=== PATIENT | male | born 1990 | race Two or more races ===

== ENCOUNTER 2017-02-10 19:45 | Emergency (ER) | payer OTHER ==
[~2017-02-10] VITALS: Ht 193 cm; Wt 113.0 kg
[~2017-02-10 19:45] MED LIST: CYMB60CA3 PO; DULO30CA PO; OMEP20CA3 PO
[2017-02-10] MEDS ORDERED: CLON0.5T PO (20:09)
[2017-02-10] MEDS ORDERED: xanax PO (20:09)
[2017-02-10] MEDS ORDERED: valium PO (20:09)
[2017-02-10] MEDS ORDERED: DULO30CA PO (20:38)
[2017-02-10 21:27] VITALS: BP 119/70
== END 2017-02-10 21:28 | disposition home or self-care (01) ==
LOC: M ED 19:45
DX: Z76.0 Encounter for issue of repeat prescription (principal); F41.9 Anxiety disorder, unspecified; F32.9 Major depressive disorder, single episode, unspecified; Z72.0 Tobacco use

== ENCOUNTER → 2017-03-04 | Outpatient (REF) | payer OTHER ==
[~2017-03-04] MED LIST changes: +CLON0.5T PO; +valium PO; +xanax PO
== END ==
LOC: M SFHCPLAZ 15:41
PROVIDERS: ATTEND Student in an Organized Health Care Education/Training Program
DX: J06.9 Acute upper respiratory infection, unspecified (principal)

== ENCOUNTER 2020-12-09 17:06 | Inpatient (IN) | payer MEDICARE, OTHER ==
[~2020-12-09] VITALS: Ht 193 cm; Wt 101.3 kg
[~2020-12-09 17:06] MED LIST changes: -CLON0.5T PO; +CLON0.5T2 PO; -DULO30CA PO; +DULO30CA9 PO; +OMEP1CAP73 PO; -OMEP20CA3 PO
--- NOTE | 2020-12-09 21:46 | REPVR ---
PROCEDURE INFORMATION: Exam: CT Head Without Contrast Exam date and time: 12/09/2020 9:39 PM Age: 30 years old Clinical indication: Weakness, extremity; Left; Additional info: CVA - nursing interventions must not delay CT TECHNIQUE: Imaging protocol: Computed tomography of the head without contrast. Radiation optimization: All CT scans at this facility use at least one of these dose optimization techniques: automated exposure control; mA and/or kV adjustment per patient size (includes targeted exams where dose is matched to clinical indication); or iterative reconstruction. Other technique: STROKE PROTOCOL was implemented. COMPARISON: No relevant prior studies available. FINDINGS: Brain: There is volume loss, advanced for stated age. There are small white matter lucencies. There is a lucency in the right cerebellar white matter. No acute infarct is identified. There is no hemorrhage or extra-axial collection. There Cerebral ventricles: No ventriculomegaly. Paranasal sinuses: Visualized sinuses are unremarkable. No fluid levels. Mastoid air cells: Visualized mastoid air cells are well aerated. Bones/joints: Unremarkable. No acute fracture. Soft tissues: Unremarkable. IMPRESSION: 1. There is volume loss. There are white matter lucencies which could represent chronic microvascular disease with small old infarcts. Given age, a demyelinating disease should also be considered. 2. No acute infarct or hemorrhage ASSESSMENT: ASPECTS ([place] Stroke Program Early CT Score) is 10. Electronically signed by: Chavez Castaneda On 12/09/2020 21:46:11 PM
[2020-12-09] MEDS ORDERED: MOM 30ML SUSPENSION UDC PO PRN (22:10)
[2020-12-09] MEDS ORDERED: MAALOX 30 ML SUSP *UDC PO PRN (22:10)
--- NOTE | 2020-12-09 22:18 | HPEPDOC ---
[facility] Medical History & Physical Date of Admission Dec 09, 2020 Date of Service: Dec 09, 2020 Attending Physician: KAILASH CHAMORRO MD History and Physical CHIEF COMPLAINT: [30 y/o male c/o left sided weakness x3-4 weeks] HISTORY OF PRESENT ILLNESS: [This is a 30 y/o male with a pmh of multiple sclerosis, gerd, glaucoma, cataracts and depression who reports to our ED today 12/09 with a cc of left sided weakness for several weeks. Patient states that he was seen at a hospital in [place] for these symptoms on 11/27 and was put on a 5 day course of steroids for an MS exacerbation. Patient states that the steroids helped his symptoms some, but they simply came back after the steroids were out. Patient states that his primary complaint is of weakness on the left side of the body. Patient also complains of some double vision in the right eye, back pain "over the whole spine," mild paresthesias of his left fingers, and some constipation, with his last bowel movement being two days ago. Patient states that he feels as though these symptoms are an ms exacerbation, but are not as severe as previous exacerbations, in which he was apparently paralyzed with. Patient at this time denies syncope, headaches, eye pain, vision loss, chest pain, sob, n/v/d, abd pain, lower extremity pain or paresthesias, fevers, chills. Patient was previously on oral daily maintenance therapy for his ms, however had to stop this d/t losing insurance. Patient states he has been off medication for about a year. Patient has recently moved to [place] and has not establish ed with a neurologist here yet.] PAST MEDICAL HISTORY: 1. [See HPI PAST SURGICAL HISTORY: 1. [Appendectomy]. 2. [Cholecystectomy]. SOCIAL HISTORY: Tobacco use:[<1 ppd for 17 years.] ETOH: ["Once in a blue hernandez"] Illicit drug use: [Denies] FAMILY HISTORY: Father: [Unspec. aortic aneurysm] ALLERGIES: Please see below. REVIEW OF SYSTEMS: CONSTITUTIONAL: [See HPI]. HEENT: [Denies uri sx]. CARDIOVASCULAR: [See HPI]. RESPIRATORY: [See HPI]. GASTROINTESTINAL: [See HPI]. GENITOURINARY: [Denies dysuria]. SKIN: [Denies rash]. MUSCULOSKELETAL: [See HPI]. NEUROLOGICAL: [See HPI]. ENDOCRINE: [Denies hx of DM]. HEMATOLOGIC/LYMPHATIC: [Denies easy bruising]. HOME MEDICATIONS: Please see below. PHYSICAL EXAMINATION: VITAL SIGNS: Please see below. GENERAL APPEARANCE: [This is an anxious appearing 30 y/o male. He does not appear to be in any respiratory distress.]. HEENT: [No mass or lesion. No facial droop or ptosis. EOMI. No scleral icterus. Nares patent. Oral mucosa moist.]. CARDIOVASCULAR: [Regular rate, rhythm. No murmurs, rubs,g allops]. LUNGS: [Good air flow b/l. No wheezing, rales, rhonchi.]. ABDOMEN: [Soft, nontender]. MUSCULOSKELETAL: [No joint deformity]. EXTREMITIES: [No peripheral edema. No overlying skin changes. Pulses intact.]. NEUROLOGICAL: [LUE and LLE strength markedly decreased. RUE and RLE strength normal. Patient able to move all fours. Gait not assessed. Speech clear. A +Ox3.]. PSYCHIATRIC: [Mood and affect appear appropriate.]. LABORATORY DATA: See below. IMAGING: [CXR: FINDINGS: Lungs: Unremarkable. No consolidation. Pleural spaces: Unremarkable. No pleural effusion. No pneumothorax. Heart/Mediastinum: Unremarkable. No cardiomegaly. Bones/joints: Unremarkable. IMPRESSION: No acute findings. Head CT: FINDINGS: Brain: There is volume loss, advanced for stated age. There are small white matter lucencies. There is a lucency in the right cerebellar white matter. No acute infarct is identified. There is no hemorrhage or extra-axial collection. There Cerebral ventricles: No ventriculomegaly. Paranasal sinuses: Visualized sinuses are unremarkable. No fluid levels. Mastoid air cells: Visualized mastoid air cells are well aerated. Bones/joints: Unremarkable. No acute fracture. Soft tissues: Unremarkable. IMPRESSION: 1. There is volume loss. There are white matter lucencies which could represent chronic microvascular disease with small old infarcts. Given age, a demyelinating disease should also be considered. 2. No acute infarct or hemorrhage ASSESSMENT: ASPECTS ([place] Stroke Program Early CT Score) is 10. ] MICROBIOLOGY: Please see below. ASSESSMENT: [This is a 30 y/o male with a pmh of multiple sclerosis, gerd, glaucoma, cataracts and depression who reports to our ED today 12/09 with a cc of left sided weakness for several weeks. Patient received head CT in the ED which was indicative of chronic changes related to MS. Patient was previously on maintenance therapy for his ms but stopped taking his medications when he lost health insurance. Patient feels as though his current symptoms are related to an MS flair. Patients symptoms were briefly relieved from 11/27-12/02 d/t a steroid course given to him while he was in [place].]. . PLAN: 1. [Acute Multiple sclerosis exacerbation - Brain MRI ordered - Dr. Vazquez, neurology, has been consulted. Assistance is appreciated. - 1g solumedrol - Pt will likely benefit from pt/ot once symptoms improve - Admit to med surg for workup and tx DVT prophylaxis - Teds and SCDs]. Vital Signs Vital Signs Date Time Temp Pulse Resp B/P (MAP) Pulse Ox O2 Delivery O2 Flow Rate FiO2 12/09/20 21:03 12/09/20 17:07 99.0 95 20 98 Room Air Allergies Coded Allergies: raspberry (Verified Allergy, Unknown, 12/09/20) A-FIB/CHADSVASC A-FIB History Current/History of A-Fib/PAF?: No JULIA CARMONA Dec 09, 2020 22:18
--- NOTE | 2020-12-09 22:20 | REPVR ---
PROCEDURE INFORMATION: Exam: XR Chest Exam date and time: 12/09/2020 9:50 PM Age: 30 years old Clinical indication: Other: CVA TECHNIQUE: Imaging protocol: XR of the chest. Views: 1 view. COMPARISON: No relevant prior studies available. FINDINGS: Lungs: Unremarkable. No consolidation. Pleural spaces: Unremarkable. No pleural effusion. No pneumothorax. Heart/Mediastinum: Unremarkable. No cardiomegaly. Bones/joints: Unremarkable. IMPRESSION: No acute findings. Electronically signed by: Chavez Castaneda On 12/09/2020 22:20:03 PM
[2020-12-09] MEDS ORDERED: PROHANCE 279.3MG/ML 15ML VIAL As Ordered ONE (22:59)
[2020-12-09] MEDS ORDERED: PROHANCE 279.3MG/ML 5ML VIAL As Ordered ONE (22:59)
[2020-12-10 00:04] LABS: PARTIAL THROMBOPLASTIN TIME 28.2 SECONDS (24.2-38.5)
--- NOTE | 2020-12-10 00:09 | REPVR ---
PROCEDURE INFORMATION: Exam: MR Head Without and With Contrast Exam date and time: 12/09/2020 11:21 PM Age: 30 years old Clinical indication: Condition or disease; Multiple sclerosis; Additional info: Left sided weakness, HX of ms TECHNIQUE: Imaging protocol: MR of the head without and with intravenous contrast. Contrast material: PROHANCE; Contrast volume: 20 ml; Contrast route: INTRAVENOUS (IV); COMPARISON: CT Head without contrast 12/09/2020 9:28 PM FINDINGS: There is age accelerated volume loss. Major vascular flow voids at the skull base are preserved. No extra-axial fluid collection. There is extensive pathologic white-matter signal involving the corpus callosum, pericallosal/periventricular white matter, subcortical white matter, brainstem, bilateral cerebellar hemispheres, bilateral middle cerebellar peduncles and the upper cervical cord. There are enhancing lesions involving the left cerebellum, high paramedian right frontal and parietal lobes and high paramedian left frontal lobe. Multifocal T2 shine through. No true diffusion restriction to indicate acute ischemic infarct. IMPRESSION: 1. Extensive findings of demyelination with age accelerated volume loss. 2. Foci of active demyelination involving the left cerebellum, high right frontal and parietal lobes and high left frontal lobe. Electronically signed by: Loki Wild On 12/10/2020 00:08:29 AM
[2020-12-10 00:23] LABS: BASO # 0.1 10^3/uL (0.0-0.2); BASO % 0.6 % (0.0-1.0); EOS # 0.1 10^3/uL (0.0-0.5); EOS % 1.4 % (0.0-3.0); HEMATOCRIT 47.9 % (42.0-52.0); HEMOGLOBIN 16.1 g/dl (13.5-17.5); LYMPH # 1.8 10^3/uL (1.5-5.0); LYMPH % 21.7 % (24.0-44.0); MEAN CORPUSCULAR HEMOGLOBIN 29.4 pg (27.0-33.0); MEAN CORPUSCULAR HGB CONC 33.6 g/dl (32.0-36.5); MEAN CORPUSCULAR VOLUME 87.6 fl (80.0-96.0); MONO # 0.4 10^3/uL (0.0-0.8); MONO % 5.1 % (2.0-8.0); NEUTROPHILS % 70.5 % (36.0-66.0); PLATELET COUNT, AUTOMATED 279 10^3/uL (150-450); RED BLOOD COUNT 5.47 10^6/uL (4.30-6.10); WHITE BLOOD COUNT 8.5 10^3/uL (4.0-10.0)
[2020-12-10] MEDS ORDERED: ALEV220T22 PO (00:26)
[2020-12-10 00:32] LABS: CK-MB VALUE MASS < 1.0 NG/ML (<3.6); CPK CREATINE PHOSPHOKINASE 53 U/L (39-308); MB/CK RELATIVE INDEX 1.89 (< OR =4); TROPONIN I < 0.02 NG/ML (< 0.10)
[2020-12-10 00:51] LABS: INR 0.87
[2020-12-10 00:57] LABS: BLOOD UREA NITROGEN 12 MG/DL (7-18); CALCIUM LEVEL 9.2 MG/DL (8.5-10.1); CARBON DIOXIDE LEVEL 30 MEQ/L (21-32); CHLORIDE LEVEL 106 MEQ/L (98-107); CREATININE FOR GFR 1.04 MG/DL (0.70-1.30); GLOMERULAR FILTRATION RATE > 60.0 (>60); GLUCOSE, FASTING 92 MG/DL (70-100); POTASSIUM SERUM 4.3 MEQ/L (3.5-5.1); SODIUM LEVEL 139 MEQ/L (136-145)
[2020-12-10 01:12] LABS: RSV AMPLIFICATION NEGATIVE (NEGATIVE)
[2020-12-10] MEDS ORDERED: NICOTINE 14 MG/24 HR TRANSDERMAL TD PRN (02:00)
[2020-12-10 03:02] VITALS: BP 138/77
[2020-12-10] MEDS ORDERED: SLF 3 ML SYR IV PRN (03:15)
[2020-12-10] MEDS ORDERED: methylPREDNISolone 1,000 MG, VIAL MATE ADAPTER 1 EACH in NS 250 ML IV ONE (05:00)
[2020-12-10 06:18] LABS: HEMATOCRIT 47.8 % (42.0-52.0); HEMOGLOBIN 15.9 g/dl (13.5-17.5); MEAN CORPUSCULAR HEMOGLOBIN 29.5 pg (27.0-33.0); MEAN CORPUSCULAR HGB CONC 33.3 g/dl (32.0-36.5); MEAN CORPUSCULAR VOLUME 88.7 fl (80.0-96.0); PLATELET COUNT, AUTOMATED 245 10^3/uL (150-450); RED BLOOD COUNT 5.39 10^6/uL (4.30-6.10); WHITE BLOOD COUNT 8.2 10^3/uL (4.0-10.0)
[2020-12-10] MEDS: SLF 3 ML SYR IV SCH ×3 (06:36→21:38)
[2020-12-10 06:40] LABS: BLOOD UREA NITROGEN 12 MG/DL (7-18); CALCIUM LEVEL 9.4 MG/DL (8.5-10.1); CARBON DIOXIDE LEVEL 31 MEQ/L (21-32); CHLORIDE LEVEL 107 MEQ/L (98-107); CREATININE FOR GFR 0.99 MG/DL (0.70-1.30); GLOMERULAR FILTRATION RATE > 60.0 (>60); GLUCOSE, FASTING 90 MG/DL (70-100); POTASSIUM SERUM 4.4 MEQ/L (3.5-5.1); SODIUM LEVEL 141 MEQ/L (136-145)
[2020-12-10 08:00] VITALS: BP 127/82
[2020-12-10] MEDS: DOCUSATE SODIUM 100MG CAPSULE PO SCH ×2 (08:39→20:28)
--- NOTE | 2020-12-10 12:45 | IPNPDOC ---
Text Note Date of Service The patient was seen on 12/10/20. NOTE Subjective: Patient stated that he feels better today, left-sided weakness im proved Objective: GENERAL APPEARANCE: NAD HEENT: no scleral icterus, no JVD, EOMI CARDIOVASCULAR: S1S2 LUNGS: CTA ABDOMEN: soft & not tender w palpitation MUSCULOSKELETAL: no cyanosis, no swelling INTEGUMENT: no generalized pallor NEUROLOGICAL: Left upper extremity stents 3 out of 5, left lower extremity strength 3 out of 5 follows commands, speech not dysarthric Assessment and plan Patient is 30 years old male with past history of multiple sclerosis, GERD, glaucoma, cataracts and depression presented to ED with left sided weakness for several weeks. Patient was not able to take his medications for multiple sclerosis due to lack of insurance Multiple sclerosis exacerbation I talked to Dr. Vazquez, he recommended 5 days course of 1g Solu-Medrol IV and then slow taper steroid for next 3-4 weeks supply service worker on board to help with Medicaid Appreciate/agree with neurologist consult Left-sided weakness Secondary to exacerbation of multiple sclerosis PT/OT Tobacco dependence Nicotine patch VS,Fishbone, I+O VS, Fishbone, I+O Laboratory Tests 12/09/20 23:46 12/10/20 05:55 Vital Signs Date Time Temp Pulse Resp B/P (MAP) Pulse Ox O2 Delivery O2 Flow Rate FiO2 12/10/20 08:00 97.6 79 16 127/82 (97) 99 Room Air I&O- Last 24 Hours up to 6 AM 12/10/20 06:00 Intake Total 0 ml Output Total 300 ml Balance -300 ml ANGELIA RAZO DO Dec 10, 2020 12:45
[2020-12-10 19:06] LABS: ALT/SGPT 41 U/L (12-78)
[2020-12-10 19:17] LABS: TOTAL 25(OH) VITAMIN D 12.8 NG/ML (30.0-100.0)
[2020-12-10 19:18] LABS: HEPATITIS B SURFACE ANTIBODY POSITIVE (POSITIVE); VITAMIN B12 LEVEL 445 PG/ML (247-911)
[2020-12-10 19:57] LABS: HEPATITIS C VIRUS ABY INDEX < 0.0 INDEX (<0.8)
[2020-12-10 22:00] VITALS: BP 145/88
[2020-12-11 06:00] VITALS: BP 146/83
[2020-12-11] MEDS: SLF 3 ML SYR IV SCH ×3 (06:07→19:36)
--- NOTE | 2020-12-11 07:10 | ECGEPIP ---
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
--- NOTE | 2020-12-11 07:38 | CR ---
CONSULTATION DATE: 12/10/2020 REFERRING PHYSICIAN: KAILASH CHAMORRO MD REASON FOR CONSULTATION: Multiple sclerosis. HISTORY OF PRESENT ILLNESS: Gaurang Zapata is a 30-year-old man with a history of multiple sclerosis diagnosed in [place] in 2018. Patient and his state he was on Plegridy in the past that caused side-effects. He was later on Gilenya which he stopped taking in the summer of 2019 when he ran out of insurance and could not afford the medication. He did not qualify for drug assistance program. He had four or five exacerbations of multiple sclerosis since 2018. He was most recently hospitalized in the beginning of November 2020 in [place] and received Solu-Medrol. He lost his job and he decided to move back to [facility] where his has relatives. They drove back from [place] yesterday and came to the Emergency Department as it became more difficult for him to walk and move his left arm and leg. He was admitted for steroid treatment and MRI scan of his brain. He states that he had a spinal tap in [place] which was unremarkable. His CBC, metabolic profile, COVID-19, flu, urinalysis, RSV were unremarkable. He feels off balance. He has on and off headaches. He denies seizures, dysphagia, dysarthria, diplopia, urinary incontinence, falls or loss of consciousness. DIAGNOSTIC STUDIES: MRI scan of brain showed mild atrophy and active plaques in left cerebellum, right parietal and bilateral frontal head regions with contrast enhancement. He also has multiple and extensive white matter lesions bilaterally in deep cerebral white matter in periventricular region. PAST MEDICAL HISTORY: 1. Multiple sclerosis. 2. Acid reflux. 3. Glaucoma. 4. Cataracts. 5. Depression. SOCIAL HISTORY: He smoked less than one pack per day for 17 years. He drinks alcohol rarely. He denies illicit drugs. FAMILY HISTORY: Father with a history of aortic aneurysm. ALLERGIES: Raspberries. HOME MEDICATIONS: None. PHYSICAL EXAMINATION: Temperature 97.6, pulse 79, respiratory rate 16, blood pressure 127/82, 99% saturation on room air. Heart: Regular rate and rhythm. Lungs are clear to auscultation. Abdomen is soft, nontender and nondistended. No pedal edema. No musculoskeletal abnormalities. No rash. No signs of meningeal irritation. Patient is awake, alert, oriented to place, person and time. Normal speech, comprehension and repetition. Extraocular muscles are intact. No facial weakness. Tongue and uvula are midline. He has nystagmus of both eyes that changes direction with horizontal and vertical direction. He has left hemiparesis with left arm strength 2/5 throughout and left leg strength 3/5 throughout with slow movements of left hand and left foot. Right side strength is 5/5. He has dysmetria on the left side. His gait is very unsteady. ASSESSMENT: 1. Relapsing remitting multiple sclerosis. 2. Left hemiparesis due to exacerbation of multiple sclerosis. 3. Nystagmus. 4. Left sided dysmetria and imbalance related to above. PLAN: 1. Solu-Medrol 1000 mg IV daily for five days followed by prednisone taper over 3-4 weeks. 2. Check hepatitis serologies, JCV antibody, VZV antibody, vitamin B12, vitamin B1, vitamin D level. 3. Ocrevus 600 mg IV q. six months or Tysabri will be considered on an outpatient basis. 4. Physical and Occupational Therapy and use walker. 5. Follow-up with us in 1-2 weeks after hospital discharge.
[2020-12-11 08:13] LABS: HEMATOCRIT 48.3 % (42.0-52.0); HEMOGLOBIN 16.8 g/dl (13.5-17.5); MEAN CORPUSCULAR HEMOGLOBIN 30.2 pg (27.0-33.0); MEAN CORPUSCULAR HGB CONC 34.8 g/dl (32.0-36.5); MEAN CORPUSCULAR VOLUME 86.7 fl (80.0-96.0); PLATELET COUNT, AUTOMATED 350 10^3/uL (150-450); RED BLOOD COUNT 5.57 10^6/uL (4.30-6.10); WHITE BLOOD COUNT 13.9 10^3/uL (4.0-10.0)
[2020-12-11 08:30] LABS: BLOOD UREA NITROGEN 17 MG/DL (7-18); CALCIUM LEVEL 9.9 MG/DL (8.5-10.1); CARBON DIOXIDE LEVEL 28 MEQ/L (21-32); CHLORIDE LEVEL 107 MEQ/L (98-107); CREATININE FOR GFR 1.02 MG/DL (0.70-1.30); GLOMERULAR FILTRATION RATE > 60.0 (>60); GLUCOSE, FASTING 116 MG/DL (70-100); POTASSIUM SERUM 4.3 MEQ/L (3.5-5.1); SODIUM LEVEL 141 MEQ/L (136-145)
[2020-12-11] MEDS: DOCUSATE SODIUM 100MG CAPSULE PO SCH ×2 (09:00→20:02)
[2020-12-11] MEDS: methylPREDNISolone 1,000 MG, VIAL MATE ADAPTER 1 EACH in NS 250 ML IV SCH (11:11)
--- NOTE | 2020-12-11 13:31 | IPNPDOC ---
Text Note Date of Service The patient was seen on 12/11/20. NOTE Subjective: No any acute events overnight. Reported improvement in his left-s ided weakness Objective: GENERAL APPEARANCE: NAD HEENT: no scleral icterus, no JVD, EOMI, horizontal nystagmus CARDIOVASCULAR: S1S2 LUNGS: CTA ABDOMEN: soft & not tender w palpitation MUSCULOSKELETAL: no cyanosis, no swelling INTEGUMENT: no generalized pallor NEUROLOGICAL: Left upper extremity stents 3 out of 5, left lower extremity strength 3 out of 5 follows commands, speech not dysarthric Assessment and plan Patient is 30 years old male with past history of multiple sclerosis, GERD, glaucoma, cataracts and depression presented to ED with left sided weakness for several weeks. Patient was not able to take his medications for multiple sclerosis due to lack of insurance Multiple sclerosis exacerbation I talked to Dr. Vazquez, he recommended 5 days course of 1g Solu-Medrol IV and then slow taper steroid for next 3-4 weeks. Today is day 2 drive worker on board to help with Medicaid Neurologist recommended Ocrevus 600 mg IV q. six months or Tysabri will be considered on an outpatient basis. Left-sided weakness Secondary to exacerbation of multiple sclerosis PT/OT Tobacco dependence Nicotine patch Vitamin D deficiency Could be contributed to MS exacerbation Vitamin D supplementation started VS,Lorye, I+O VS, Fishbone, I+O Laboratory Tests 12/11/20 07:55 Vital Signs Date Time Temp Pulse Resp B/P (MAP) Pulse Ox O2 Delivery O2 Flow Rate FiO2 12/11/20 06:00 97.8 101 18 146/83 (104) 100 Room Air I&O- Last 24 Hours up to 6 AM 12/11/20 06:00 Intake Total 600 ml Output Total 700 ml Balance -100 ml ANGELIA RAZO DO Dec 11, 2020 13:31
[2020-12-11 14:00] VITALS: BP 117/83
[2020-12-11] MEDS: VITAMIN D 1,000 INTERNATIONAL UNITS TABLET PO SCH (14:49)
[2020-12-11] MEDS: ACETAMINOPHEN TAB 650MG DOSE (2X325MG) PO PRN (19:35)
[2020-12-11 20:27] VITALS: BP 154/104
[2020-12-11 20:40] VITALS: BP 144/74
[2020-12-12] MEDS: SLF 3 ML SYR IV SCH ×3 (05:28→21:16)
[2020-12-12 06:00] VITALS: BP 145/70
[2020-12-12 06:23] LABS: HEMATOCRIT 46.9 % (42.0-52.0); HEMOGLOBIN 15.8 g/dl (13.5-17.5); MEAN CORPUSCULAR HEMOGLOBIN 29.5 pg (27.0-33.0); MEAN CORPUSCULAR HGB CONC 33.7 g/dl (32.0-36.5); MEAN CORPUSCULAR VOLUME 87.7 fl (80.0-96.0); PLATELET COUNT, AUTOMATED 384 10^3/uL (150-450); RED BLOOD COUNT 5.35 10^6/uL (4.30-6.10); WHITE BLOOD COUNT 12.1 10^3/uL (4.0-10.0)
[2020-12-12 06:45] LABS: BLOOD UREA NITROGEN 22 MG/DL (7-18); CALCIUM LEVEL 9.6 MG/DL (8.5-10.1); CARBON DIOXIDE LEVEL 25 MEQ/L (21-32); CHLORIDE LEVEL 107 MEQ/L (98-107); CREATININE FOR GFR 1.06 MG/DL (0.70-1.30); GLOMERULAR FILTRATION RATE > 60.0 (>60); GLUCOSE, FASTING 118 MG/DL (70-100); POTASSIUM SERUM 3.9 MEQ/L (3.5-5.1); SODIUM LEVEL 141 MEQ/L (136-145)
[2020-12-12] MEDS: DOCUSATE SODIUM 100MG CAPSULE PO SCH ×2 (09:00→21:00)
[2020-12-12] MEDS: VITAMIN D 1,000 INTERNATIONAL UNITS TABLET PO SCH (09:46)
[2020-12-12] MEDS: methylPREDNISolone 1,000 MG, VIAL MATE ADAPTER 1 EACH in NS 250 ML IV SCH (09:46)
[2020-12-12] MEDS ORDERED: diphenhydrAMINE 25MG CAP PO PRN (10:05)
--- NOTE | 2020-12-12 12:30 | IPNPDOC ---
Text Note Date of Service The patient was seen on 12/12/20. NOTE Subjective: No any acute events overnight. Reported continuous improvement in his left-sided weakness Objective: GENERAL APPEARANCE: NAD HEENT: no scleral icterus, no JVD, EOMI, horizontal nystagmus CARDIOVASCULAR: S1S2 LUNGS: CTA ABDOMEN: soft & not tender w palpitation MUSCULOSKELETAL: no cyanosis, no swelling INTEGUMENT: no generalized pallor NEUROLOGICAL: Left upper extremity stents 3 out of 5, left lower extremity strength 3 out of 5 follows commands, speech not dysarthric Assessment and plan Patient is 30 years old male with past history of multiple sclerosis, GERD, glaucoma, cataracts and depression presented to ED with left sided weakness for several weeks. Patient was not able to take his medications for multiple sclerosis due to lack of insurance Multiple sclerosis exacerbation I talked to Dr. Vazquez, he recommended 5 days course of 1g Solu-Medrol IV and then slow taper steroid for next 3-4 weeks. Today is day 3 delinquency prevention social worker on board to help with Medicaid Neurologist recommended Ocrevus 600 mg IV q. six months or Tysabri will be considered on an outpatient basis. Left-sided weakness Secondary to exacerbation of multiple sclerosis PT/OT Tobacco dependence Nicotine patch Vitamin D deficiency Could be contributed to MS exacerbation Vitamin D supplementation started VS,Lorye, I+O VS, Fishbone, I+O Laboratory Tests 12/12/20 06:13 Vital Signs Date Time Temp Pulse Resp B/P (MAP) Pulse Ox O2 Delivery O2 Flow Rate FiO2 12/12/20 06:00 98.3 91 20 145/70 (95) 98 Room Air I&O- Last 24 Hours up to 6 AM 12/12/20 06:00 Intake Total 2280 ml Output Total 0 ml Balance 2280 ml ANGELIA RAZO DO Dec 12, 2020 12:30
[2020-12-12 14:51] VITALS: BP 136/90
[2020-12-12] MEDS: ACETAMINOPHEN TAB 650MG DOSE (2X325MG) PO PRN (16:44)
[2020-12-12 22:00] VITALS: BP 143/79
[2020-12-13] MEDS: SLF 3 ML SYR IV SCH ×3 (05:13→20:42)
[2020-12-13 06:00] VITALS: BP 158/78
[2020-12-13 06:40] LABS: HEMOGLOBIN 15.6 g/dl (13.5-17.5); MEAN CORPUSCULAR HEMOGLOBIN 29.3 pg (27.0-33.0); MEAN CORPUSCULAR HGB CONC 33.2 g/dl (32.0-36.5); MEAN CORPUSCULAR VOLUME 88.2 fl (80.0-96.0); PLATELET COUNT, AUTOMATED 422 10^3/uL (150-450); RED BLOOD COUNT 5.33 10^6/uL (4.30-6.10); WHITE BLOOD COUNT 13.4 10^3/uL (4.0-10.0)
[2020-12-13 07:00] LABS: BLOOD UREA NITROGEN 21 MG/DL (7-18); CALCIUM LEVEL 10.1 MG/DL (8.5-10.1); CARBON DIOXIDE LEVEL 27 MEQ/L (21-32); CHLORIDE LEVEL 107 MEQ/L (98-107); CREATININE FOR GFR 0.97 MG/DL (0.70-1.30); GLOMERULAR FILTRATION RATE > 60.0 (>60); GLUCOSE, FASTING 97 MG/DL (70-100); POTASSIUM SERUM 3.8 MEQ/L (3.5-5.1); SODIUM LEVEL 138 MEQ/L (136-145)
[2020-12-13] MEDS: VITAMIN D 1,000 INTERNATIONAL UNITS TABLET PO SCH (08:46)
[2020-12-13] MEDS: DOCUSATE SODIUM 100MG CAPSULE PO SCH ×2 (08:47→20:42)
--- NOTE | 2020-12-13 11:42 | IPNPDOC ---
Text Note Date of Service The patient was seen on 12/13/20. NOTE Subjective: No any acute events overnight. Objective: GENERAL APPEARANCE: NAD HEENT: no scleral icterus, no JVD, EOMI, horizontal nystagmus CARDIOVASCULAR: S1S2 LUNGS: CTA ABDOMEN: soft & not tender w palpitation MUSCULOSKELETAL: no cyanosis, no swelling INTEGUMENT: no generalized pallor NEUROLOGICAL: Left upper extremity stents 3 out of 5, left lower extremity strength 3 out of 5 follows commands, speech not dysarthric Assessment and plan Patient is 30 years old male with past history of multiple sclerosis, GERD, glaucoma, cataracts and depression presented to ED with left sided weakness for several weeks. Patient was not able to take his medications for multiple sclerosis due to lack of insurance Multiple sclerosis exacerbation I talked to Dr. Vazquez, he recommended 5 days course of 1g Solu-Medrol IV and then slow taper steroid for next 3-4 weeks. Today is day 4 food [employer] drink factory workers on board to help with Medicaid Neurologist recommended Ocrevus 600 mg IV q. six months or Tysabri will be considered on an outpatient basis. Left-sided weakness Secondary to exacerbation of multiple sclerosis PT/OT Tobacco dependence Nicotine patch Vitamin D deficiency Could be contributed to MS exacerbation Vitamin D supplementation started VS,Fishbone, I+O VS, Fishbone, I+O Laboratory Tests 12/13/20 06:16 Vital Signs Date Time Temp Pulse Resp B/P (MAP) Pulse Ox O2 Delivery O2 Flow Rate FiO2 12/13/20 06:00 98.3 99 20 158/78 (104) 97 Room Air I&O- Last 24 Hours up to 6 AM 12/13/20 06:00 Intake Total 1620 ml Balance 1620 ml ANGELIA RAZO DO Dec 13, 2020 11:42
[2020-12-13] MEDS: methylPREDNISolone 1,000 MG, VIAL MATE ADAPTER 1 EACH in NS 250 ML IV SCH (13:59)
[2020-12-13 14:00] VITALS: BP 135/89
[2020-12-13 20:41] VITALS: BP 137/88
[2020-12-14] MEDS: SLF 3 ML SYR IV SCH (05:54)
[2020-12-14 06:00] VITALS: BP 158/77
[2020-12-14 06:55] LABS: HEMATOCRIT 45.3 % (42.0-52.0); HEMOGLOBIN 15.2 g/dl (13.5-17.5); MEAN CORPUSCULAR HGB CONC 33.6 g/dl (32.0-36.5); MEAN CORPUSCULAR VOLUME 86.5 fl (80.0-96.0); PLATELET COUNT, AUTOMATED 420 10^3/uL (150-450); RED BLOOD COUNT 5.24 10^6/uL (4.30-6.10); WHITE BLOOD COUNT 8.4 10^3/uL (4.0-10.0)
[2020-12-14 07:05] LABS: BLOOD UREA NITROGEN 22 MG/DL (7-18); CALCIUM LEVEL 9.3 MG/DL (8.5-10.1); CARBON DIOXIDE LEVEL 22 MEQ/L (21-32); CHLORIDE LEVEL 107 MEQ/L (98-107); CREATININE FOR GFR 0.84 MG/DL (0.70-1.30); GLOMERULAR FILTRATION RATE > 60.0 (>60); GLUCOSE, FASTING 118 MG/DL (70-100); POTASSIUM SERUM 4.1 MEQ/L (3.5-5.1); SODIUM LEVEL 134 MEQ/L (136-145)
[2020-12-14] MEDS: methylPREDNISolone 1,000 MG, VIAL MATE ADAPTER 1 EACH in NS 250 ML IV SCH (08:12)
[2020-12-14] MEDS: VITAMIN D 1,000 INTERNATIONAL UNITS TABLET PO SCH (08:12)
[2020-12-14] MEDS: DOCUSATE SODIUM 100MG CAPSULE PO SCH (08:12)
[2020-12-14] MEDS ORDERED: PRED10TA2 PO (09:56)
--- NOTE | 2020-12-14 11:54 | DS.PDOC ---
Discharge Summary General Date of Admission Dec 09, 2020 at 22:08 Date of Discharge 12/14/20 Discharge Summary PROCEDURES PERFORMED DURING STAY: [None]. ADMITTING DIAGNOSES: Left-sided weakness Multiple sclerosis exacerbation Tobacco dependence Vitamin D deficiency DISCHARGE DIAGNOSES: Left-sided weakness Multiple sclerosis exacerbation Tobacco dependence Vitamin D deficiency COMPLICATIONS/CHIEF COMPLAINT: Acute Relapsing Multiple Sclerosis. HISTORY OF PRESENT ILLNESS: Patient is 30 years old male with past history of multiple sclerosis, GERD, glaucoma, cataracts and depression presented to ED with left sided weakness for several weeks. Patient was not able to take his medications for multiple sclerosis due to lack of insurance HOSPITAL COURSE: During the hospital stay the following issues addressed Multiple sclerosis exacerbation I talked to Dr. Vazquez, he recommended 5 days course of 1g Solu-Medrol IV and then slow taper steroid for next 3-4 weeks. Today is day 4 paste up worker on board to help with Medicaid Neurologist recommended Ocrevus 600 mg IV q. six months or Tysabri will be considered on an outpatient basis. Left-sided weakness Secondary to exacerbation of multiple sclerosis PT/OT Tobacco dependence Nicotine patch Vitamin D deficiency Could be contributed to MS exacerbation Vitamin D supplementation started DISCHARGE MEDICATIONS: Please see below. ALLERGIES: Please see below. PHYSICAL EXAMINATION ON DISCHARGE: VITAL SIGNS: Please see below. GENERAL APPEARANCE: NAD HEENT: no scleral icterus, no JVD, EOMI, horizontal nystagmus CARDIOVASCULAR: S1S2 LUNGS: CTA ABDOMEN: soft & not tender w palpitation MUSCULOSKELETAL: no cyanosis, no swelling INTEGUMENT: no generalized pallor NEUROLOGICAL: Left upper extremity stents 3 out of 5, left lower extremity stren gth 3 out of 5 follows commands, speech not dysarthric LABORATORY DATA: Please see below. IMAGING: PROCEDURE INFORMATION: Exam: MR Head Without and With Contrast Exam date and time: 12/09/2020 11:21 PM Age: 30 years old Clinical indication: Condition or disease; Multiple sclerosis; Additional info: Left sided weakness, HX of ms TECHNIQUE: Imaging protocol: MR of the head without and with intravenous contrast. Contrast material: PROHANCE; Contrast volume: 20 ml; Contrast route: INTRAVENOUS (IV); COMPARISON: CT Head without contrast 12/09/2020 9:28 PM FINDINGS: There is age accelerated volume loss. Major vascular flow voids at the skull base are preserved. No extra-axial fluid collection. There is extensive pathologic white-matter signal involving the corpus callosum, pericallosal/periventricular white matter, subcortical white matter, brainstem, bilateral cerebellar hemispheres, bilateral middle cerebellar peduncles and the upper cervical cord. There are enhancing lesions involving the left cerebellum, high paramedian right frontal and parietal lobes and high paramedian left frontal lobe. Multifocal T2 shine through. No true diffusion restriction to indicate acute ischemic infarct. IMPRESSION: 1. Extensive findings of demyelination with age accelerated volume loss. 2. Foci of active demyelination involving the left cerebellum, high right frontal and parietal lobes and high left frontal lobe. Electronically signed by: Loki Wild On PROGNOSIS: Fair ACTIVITY: [As tolerated]. DIET: Regular DISPOSITION: 01 Home, Self-Care. DISCHARGE INSTRUCTIONS: Continue taking prednisone taper ITEMS TO FOLLOWUP ON ON OUTPATIENT: Follow-up with neurologist in 1 week DISCHARGE CONDITION: [Stable]. TIME SPENT ON DISCHARGE: 40minutes. Vital Signs/I&Os Vital Signs Date Time Temp Pulse Resp B/P (MAP) Pulse Ox O2 Delivery O2 Flow Rate FiO2 12/14/20 06:00 98.5 96 20 158/77 (104) 99 Room Air I&O- Last 24 Hours up to 6 AM 12/14/20 06:00 Intake Total 1920 ml Balance 1920 ml Laboratory Data Labs 24H Laboratory Tests 2 12/14/20 06:34: Nucleated Red Blood Cells % (auto) 0.0, Anion Gap 5L, Glomerular Filtration Rate > 60.0, Calcium Level 9.3 CBC/BMP Laboratory Tests 12/14/20 06:34 Discharge Medications Scheduled Prednisone (Prednisone) 10 Mg Tablet, 10 MG PO TAPER Take 4 tabs daily x 7 days, then 3 tabs daily x 7 days, then 2 tabs daily x 7 days, then 1 tab daily x 7 days and stop Scheduled PRN Naproxen Sodium (Aleve) 220 Mg Tablet, 220 MG PO BID PRN for PAIN LEVEL 1-5, (Reported) Allergies Coded Allergies: raspberry (Verified Allergy, Unknown, 12/09/20) ANGELIA RAZO DO Dec 14, 2020 11:54
== END 2020-12-14 10:40 | disposition home or self-care (01) | DRG 60 ==
LOC: M ED 17:06 → M ED INP 22:08 → ENRESERV 12-10 01:22 → M PCU 12-10 02:40 → M MS5PR 12-10 14:52
PROVIDERS: ADMIT Family Medicine; ATTEND Internal Medicine
DX: G35 Multiple sclerosis (principal); K21.9 Gastro-esophageal reflux disease without esophagitis; H40.9 Unspecified glaucoma; F32.9 Major depressive disorder, single episode, unspecified; K59.00 Constipation, unspecified; H26.9 Unspecified cataract; F17.200 Nicotine dependence, unspecified, uncomplicated; G81.92 Hemiplegia, unspecified affecting left dominant side; E55.9 Vitamin D deficiency, unspecified; R27.8 Other lack of coordination; H55.00 Unspecified nystagmus; T45.1X6A Underdosing of antineoplastic and immunosuppressive drugs, initial encounter; Z91.120 Patient's intentional underdosing of medication regimen due to financial hardship; Z20.822 Contact with and (suspected) exposure to COVID-19; Z90.49 Acquired absence of other specified parts of digestive tract; Z91.018 Allergy to other foods

== ENCOUNTER 2021-02-26 08:31 | Outpatient (CLI) | payer MEDICARE, OTHER ==
[~2021-02-26] VITALS: Ht 193 cm; Wt 101.3 kg
[2021-02-26] VITALS (8 sets, daily range): BP systolic 130–146; BP diastolic 62–95
[~2021-02-26 08:31] MED LIST changes: +ACETAMINOPHEN TAB 650MG DOSE (2X325MG) PO ONE; +ALEV220T22 PO; +OCRELIZUMAB 300 MG in NS 250 ML IV ONE; +PRED10TA2 PO; +diphenhydrAMINE 25MG CAP PO ONE; +methylPREDNISolone 125MG 2ML VIAL IV ONE
== END 2021-02-26 12:20 | disposition home or self-care (01) ==
LOC: M INFU 08:31
PROVIDERS: ATTEND Psychiatry & Neurology Neurology
DX: G35 Multiple sclerosis (principal)
CPT/HCPCS: 96365; 96366; 96375; J2350; J2930

== ENCOUNTER 2021-03-13 08:30 | Outpatient (CLI) | payer MEDICARE ==
[~2021-03-13] VITALS: Ht 188 cm; Wt 101.3 kg
[~2021-03-13 08:30] MED LIST changes: -CYMB60CA3 PO; +CYMB60CA4 PO
[2021-03-13 08:35] VITALS: BP 144/86
[2021-03-13 09:12] VITALS: BP 144/86
[2021-03-13 10:30] VITALS: BP 134/80
[2021-03-13 11:00] VITALS: BP 128/80
[2021-03-13 11:30] VITALS: BP 124/69
[2021-03-13 12:28] VITALS: BP 143/90
== END 2021-03-13 12:45 | disposition home or self-care (01) ==
LOC: M INFU 08:30
PROVIDERS: ATTEND Psychiatry & Neurology Neurology
DX: G35 Multiple sclerosis (principal); F06.4 Anxiety disorder due to known physiological condition; F33.9 Major depressive disorder, recurrent, unspecified
CPT/HCPCS: 90834; 96360; 96361; 96365; 96366; J2350; J2930

== ENCOUNTER → 2021-04-03 | Outpatient (CLI) | payer MEDICARE ==
[~2021-04-03] MED LIST changes: -ACETAMINOPHEN TAB 650MG DOSE (2X325MG) PO ONE; -OCRELIZUMAB 300 MG in NS 250 ML IV ONE; -diphenhydrAMINE 25MG CAP PO ONE; -methylPREDNISolone 125MG 2ML VIAL IV ONE
[2021-04-03 11:42] LABS: BASO # 0.1 10^3/uL (0.0-0.2); BASO % 0.9 % (0.0-1.0); EOS # 0.4 10^3/uL (0.0-0.5); EOS % 4.7 % (0.0-3.0); HEMATOCRIT 46.7 % (42.0-52.0); HEMOGLOBIN 15.4 g/dl (13.5-17.5); LYMPH # 1.7 10^3/uL (1.5-5.0); LYMPH % 22.3 % (24.0-44.0); MONO # 0.5 10^3/uL (0.0-0.8); MONO % 6.9 % (2.0-8.0); NEUTROPHILS # 4.9 10^3/uL (1.5-8.5); NEUTROPHILS % 64.8 % (36.0-66.0); PLATELET COUNT, AUTOMATED 358 10^3/uL (150-450); RED BLOOD COUNT 5.13 10^6/uL (4.30-6.10); WHITE BLOOD COUNT 7.6 10^3/uL (4.0-10.0)
[2021-04-03 12:09] LABS: ALT/SGPT 28 U/L (12-78); BILIRUBIN,TOTAL 0.3 MG/DL (0.2-1.0); BLOOD UREA NITROGEN 10 MG/DL (7-18); CALCIUM LEVEL 9.3 MG/DL (8.5-10.1); CARBON DIOXIDE LEVEL 33 MEQ/L (21-32); CHLORIDE LEVEL 103 MEQ/L (98-107); CREATININE FOR GFR 1.01 MG/DL (0.70-1.30); GLOMERULAR FILTRATION RATE > 60.0 (>60); GLUCOSE, FASTING 91 MG/DL (70-100); POTASSIUM SERUM 4.7 MEQ/L (3.5-5.1); SODIUM LEVEL 139 MEQ/L (136-145)
== END ==
LOC: M LAB 10:39
PROVIDERS: ATTEND Psychiatry & Neurology Neurology
DX: G35 Multiple sclerosis (principal)

== ENCOUNTER → 2021-07-01 | Outpatient (REF) | LOC: M LABSMTC 09:30 | PROVIDERS: ATTEND Pediatrics | DX: Z11.52 Encounter for screening for COVID-19 (principal); Z20.822 Contact with and (suspected) exposure to COVID-19 ==

== ENCOUNTER 2021-09-10 08:14 | Outpatient (CLI) | payer MEDICARE ==
[~2021-09-10] VITALS: Ht 193 cm; Wt 100.0 kg
[2021-09-10] VITALS (7 sets, daily range): BP systolic 115–138; BP diastolic 67–90
[2021-09-10] MEDS ORDERED: methylPREDNISolone 125MG 2ML VIAL IV ONE (08:30)
[2021-09-10] MEDS ORDERED: OCRELIZUMAB 600 MG in NS 500 ML IV ONE (08:30)
[2021-09-10] MEDS ORDERED: diphenhydrAMINE 25MG CAP PO ONE (08:30)
[2021-09-10] MEDS ORDERED: ACETAMINOPHEN TAB 650MG DOSE (2X325MG) PO ONE (08:30)
== END 2021-09-10 13:15 | disposition home or self-care (01) ==
LOC: M INFU 08:14
PROVIDERS: ATTEND Psychiatry & Neurology Neurology
DX: G35 Multiple sclerosis (principal); F06.4 Anxiety disorder due to known physiological condition; F33.9 Major depressive disorder, recurrent, unspecified
CPT/HCPCS: 96365; 96366; J2350; J2930

== ENCOUNTER → 2022-03-03 | Outpatient (CLI) | payer MEDICARE ==
[2022-03-03 09:59] LABS: BASO # 0.1 10^3/uL (0.0-0.2); BASO % 1.3 % (0.0-1.0); EOS # 0.8 10^3/uL (0.0-0.5); EOS % 9.6 % (0.0-3.0); HEMATOCRIT 47.1 % (42.0-52.0); HEMOGLOBIN 15.5 g/dl (13.5-17.5); LYMPH # 1.7 10^3/uL (1.5-5.0); LYMPH % 19.6 % (24.0-44.0); MEAN CORPUSCULAR HEMOGLOBIN 29.5 pg (27.0-33.0); MEAN CORPUSCULAR HGB CONC 32.9 g/dl (32.0-36.5); MEAN CORPUSCULAR VOLUME 89.7 fl (80.0-96.0); MONO # 0.7 10^3/uL (0.0-0.8); MONO % 7.6 % (2.0-8.0); NEUTROPHILS # 5.2 10^3/uL (1.5-8.5); NEUTROPHILS % 61.4 % (36.0-66.0); PLATELET COUNT, AUTOMATED 349 10^3/uL (150-450); RED BLOOD COUNT 5.25 10^6/uL (4.30-6.10); WHITE BLOOD COUNT 8.5 10^3/uL (4.0-10.0)
[2022-03-03 10:40] LABS: TOTAL PROTEIN 7.2 GM/DL (6.4-8.2)
[2022-03-03 11:12] LABS: TOTAL 25(OH) VITAMIN D 17.5 NG/ML (30.0-100.0); VITAMIN B12 LEVEL 1076 PG/ML (247-911)
[2022-03-05 11:51] LABS: ALBUMIN 4.92 GM/DL (3.29-5.55); ALBUMIN % 68.3 % (55.8-66.1); ALPHA-1-GLOBULIN % 4.5 % (2.9-4.9); ALPHA-1-GLOBULINS 0.32 GM/DL (0.17-0.41); ALPHA-2-GLOBULINS 0.78 GM/DL (0.42-0.99); ALPHA-2-GLOBULINS % 10.9 % (7.1-11.8); BETA-1-GLOBULINS 0.42 GM/DL (0.28-0.60); BETA-1-GLOBULINS % 5.8 % (4.7-7.2); BETA-2-GLOBULINS 0.32 GM/DL (0.19-0.55); BETA-2-GLOBULINS % 4.5 % (3.2-6.5); GAMMA GLOBULINS 0.43 GM/DL (0.65-1.58)
== END ==
LOC: M LAB 09:01
PROVIDERS: ATTEND Psychiatry & Neurology Neurology
DX: G35 Multiple sclerosis (principal); Z79.1 Long term (current) use of non-steroidal anti-inflammatories (NSAID)

== ENCOUNTER → 2022-03-10 | Outpatient (REF) | payer MEDICARE | LOC: M LAB REF 10:11 | PROVIDERS: ATTEND Psychiatry & Neurology Neurology | DX: G35 Multiple sclerosis (principal) ==

== ENCOUNTER 2022-04-01 09:00 | Outpatient (CLI) | payer MEDICARE ==
[2022-04-01 08:55] VITALS: BP 132/80
[~2022-04-01 09:00] MED LIST changes: +ACETAMINOPHEN TAB 650MG DOSE (2X325MG) PO ONE; +OCRELIZUMAB 600 MG in NS 500 ML IV ONE; +diphenhydrAMINE 25MG CAP PO ONE; +methylPREDNISolone 125MG 2ML VIAL IV ONE
[2022-04-01 11:00] VITALS: BP 139/65
[2022-04-01 11:30] VITALS: BP 134/73
[2022-04-01 13:37] VITALS: BP 148/71
== END 2022-04-01 13:40 | disposition home or self-care (01) ==
LOC: M INFU 09:00
PROVIDERS: ATTEND Psychiatry & Neurology Neurology
DX: G35 Multiple sclerosis (principal)
CPT/HCPCS: 96365; 96366; 96375; J2930

== ENCOUNTER → 2022-04-13 | Outpatient (REF) | payer MEDICARE ==
[~2022-04-13] MED LIST changes: -ACETAMINOPHEN TAB 650MG DOSE (2X325MG) PO ONE; -OCRELIZUMAB 600 MG in NS 500 ML IV ONE; -diphenhydrAMINE 25MG CAP PO ONE; -methylPREDNISolone 125MG 2ML VIAL IV ONE
[2022-04-13 13:42] LABS: ALBUMIN 4.2 GM/DL (3.2-5.2); ALT/SGPT 22 U/L (12-78); BILIRUBIN,TOTAL 0.4 MG/DL (0.2-1.0); BLOOD UREA NITROGEN 11 MG/DL (7-18); CALCIUM LEVEL 9.4 MG/DL (8.5-10.1); CARBON DIOXIDE LEVEL 30 MEQ/L (21-32); CHLORIDE LEVEL 105 MEQ/L (98-107); CHOLESTEROL LEVEL 269 MG/DL (<200); CREATININE FOR GFR 0.95 MG/DL (0.70-1.30); GLOMERULAR FILTRATION RATE > 60.0 (>60); GLUCOSE, FASTING 84 MG/DL (70-100); HDL CHOLESTEROL 37 MG/DL (>40); LDL CHOLESTEROL 162 MG/DL (<100); NON-HDL-C 232 MG/DL; POTASSIUM SERUM 4.7 MEQ/L (3.5-5.1); SODIUM LEVEL 140 MEQ/L (136-145); THYROID STIMULATING HORMONE 0.415 uIU/ML (0.358-3.740); TOTAL PROTEIN 7.2 GM/DL (6.4-8.2); TRIGLYCERIDES LEVEL 351 MG/DL (<150)
== END ==
LOC: M LAB REF 11:43
PROVIDERS: ATTEND Family Medicine Addiction Medicine
DX: E78.5 Hyperlipidemia, unspecified (principal)

== ENCOUNTER → 2022-06-22 | Outpatient (REF) | payer MEDICARE ==
[2022-06-22 13:40] LABS: ALBUMIN 3.9 G/DL (3.2-5.2); ALKALINE PHOSPHATASE 73 U/L (46-116); ALT/SGPT 13 U/L (7.0-40); AST/SGOT 17 U/L (<34); BILIRUBIN,TOTAL 0.2 MG/DL (0.3-1.2); BLOOD UREA NITROGEN 10 MG/DL (9-23); CALCIUM LEVEL 9.3 MG/DL (8.5-10.1); CARBON DIOXIDE LEVEL 29 MMOL/L (20-31); CHLORIDE LEVEL 105 MMOL/L (98-107); CHOLESTEROL LEVEL 250 MG/DL (<200); CHOLESTEROL RISK RATIO 5.98 (<5); CREATININE FOR GFR 0.88 MG/DL (0.70-1.30); GLOMERULAR FILTRATION RATE > 60.0 (>60); GLUCOSE, FASTING 78 MG/DL (60-100); HDL CHOLESTEROL 41.8 MG/DL (>40); NON-HDL-C 208 MG/DL; POTASSIUM SERUM 4.4 MMOL/L (3.5-5.1); SODIUM LEVEL 140 MMOL/L (136-145); TOTAL PROTEIN 6.5 G/DL (5.7-8.2); TRIGLYCERIDES LEVEL 479 MG/DL (<150)
[2022-06-22 13:41] LABS: THYROID STIMULATING HORMONE 0.348 uIU/ML (0.55-4.78)
== END ==
LOC: M LAB REF 12:43
PROVIDERS: ATTEND Family Medicine Addiction Medicine
DX: E78.5 Hyperlipidemia, unspecified (principal)